=== PATIENT | male | born 1960 | race American Indian/Alaskan Native ===

== ENCOUNTER 2021-01-09 18:17 | Observation (INO) | payer MEDICAID, SELFPAY ==
[2021-01-09 18:21] VITALS: BP 123/59; PULSE 83; RESP 16; TEMP 36.9; O2SAT 98; BMI 33.9
--- NOTE | 2021-01-09 18:31 | PC.NURSE ---
Pt states that he has drank his usual pint of whiskey and 6 beers today. He was walking from his house to the gas station when he had a syncopal episode. Pt hit his head but no lac or hematoma noted. Pt has a dull headache but no other symptoms. Pt states I know I drink a lot but it wasn't enough to make me pass out. Maybe it was the heat. Pt is A&Ox4, speaking clearly, pleasant, VS stable.
--- NOTE | 2021-01-09 18:39 | ED.SYNCOPE ---
HPI - Syncope General Chief Complaint: Syncope Stated Complaint: Syncope Time Seen by Provider: 01/09/21 18:25 Source: EMS Mode of arrival: EMS Limitations: no limitations History of Present Illness HPI narrative: 60-year-old male daily smoker and heavy drinker with presents with a chief complaint of a syncopal episode just prior to arrival. He states he was in his normal state of health when he walked into a local gas station and then upon walking out he collapsed and fell to the ground. This was witnessed by bystanders and they state he did fall to the ground and may have struck his head, demonstrated no seizure-like activity and rather quickly returned to his baseline. Patient states that he did not feel any dizziness, lightheadedness or weakness coming. He does not feel flushed or nauseated and had no clue anything might have been wrong. He denies any recent nausea or vomiting nor medication changes. He denies any recent use of the bathroom or change in position or other obvious provoking symptoms MD complaint: loss of consciousness Prodromal symptoms: none Witnessed: yes - by bystander Injuries sustained associated with event: none Current symptoms: none Treatments prior to arrival: none Related Data Home Medications Medication Instructions Recorded Confirmed No Known Home Medications 01/09/21 01/09/21 Allergies Allergy/AdvReac Type Severity Reaction Status Date / Time No Known Drug Allergies Allergy Verified 01/09/21 18:25 Review of Systems Constitutional Constitutional: Denies chills, Denies fatigue, Denies fever(s), Denies frequent falls, Denies lethargy and Denies weakness Eyes Eyes: Denies change in vision, Denies eye discharge, Denies irritation and Denies loss of vision ENT Ears, Nose, Mouth, and Throat: Denies change in voice, Denies dizziness, Denies neck pain, Denies sore throat and Denies throat swelling Cardiovascular Cardiovascular: Denies chest pain, Reports syncope, Denies irregular heart rhythm, Denies lightheadedness, Denies palpitations, Denies dyspnea, Denies dyspnea on exertion and Denies orthopnea Respiratory Respiratory: Denies cough, Denies dyspnea, Denies dyspnea on exertion and Denies wheezing Gastrointestinal Gastrointestinal: Denies abdominal pain, Denies change in bowel habits, Denies diarrhea, Denies nausea and Denies vomiting Musculoskeletal Musculoskeletal: Denies neck pain and Denies numbness Integumentary/Breasts Skin/Breast: Denies pruritus, Denies erythema, Denies rash and Denies wounds Neurologic Neurologic: Denies behavioral changes, Denies confusion, Denies dizziness, Reports syncope, Denies frequent falls, Denies loss of vision, Denies numbness and Denies weakness Psychiatric Psychiatric: Denies anxiety, Denies behavioral changes, Denies confusion, Denies depression, Denies homicidal ideation and Denies suicidal ideation Endocrine Endocrine: Denies fatigue, Denies flushing and Denies palpitations Hematologic/Lymphatic Hematologic/Lymphatic: Denies easy bruising Allergic/Immunologic Allergic/Immunologic: Denies urticaria, Denies throat swelling and Denies wheezing Patient History Social History household members: other Smoking Status: Current every day smoker alcohol intake: current Smoking Status: Current every day smoker tobacco type: cigarettes alcohol intake frequency: 3 or more drinks per day Alcohol type: beer and hard liquor Substance Use Type: does not use Exam Narrative Exam Narrative: GENERAL: [60] year old patient appears stated age. Well-nourished, well-developed patient, in mild distress. HEAD: Atraumatic. Normocephalic. EYES: Pupils equal round and reactive. Extraocular motions intact. No scleral icterus. No injection or drainage. ENT: Nose without bleeding, purulent drainage. Throat without erythema, tonsillar hypertrophy or exudate. Airway patent. NECK: Trachea midline. Non tender CARDIOVASCULAR: Regular rate and rhythm without murmurs, gallops, or rubs. RESPIRATORY: Clear to auscultation. Breath sounds equal bilaterally. No wheezes, rales, or rhonchi. GASTROINTESTINAL: Abdomen soft, non-tender, nondistended. EXTREMITIES: No edema or joint tenderness. BACK: Nontender without deformity or crepitance. No flank tenderness. NEURO: AOx3. SKIN: No rash or erythema of visible areas NIH Stroke Scale 1a. LOC: Patient is alert and keenly responsive (0) 1b. LOC Questions: Patient answers both LOC questions accurately (0) 1c. LOC Commands: Patient performs both tasks correctly (0) 2. Best Gaze: Normal (0) 3. Visual: No visual loss (0) 4. Facial palsy: Normal symmetrical movements (0) 5. Motor arm: No drift (0) 6. Motor leg: No drift (0) 7. Limb ataxia: Absent (0) 8. Sensory: Normal (0) 9. Best language: No aphasia; normal (0) 10. Dysarthria: Normal (0) 11. Extinction and inattention: No abnormality (0) NIHSS: 0 Initial Vital Signs Initial Vital Signs: Vital Signs Temperature 98.5 F 01/09/21 18:21 Pulse Rate 83 01/09/21 18:21 Respiratory Rate 16 01/09/21 18:21 Blood Pressure 123/59 L 01/09/21 18:21 Pulse Oximetry 98 01/09/21 18:21 Course Course Course Narrative: 60-year-old male smoker and heavy drinker presents with an unprovoked syncopal episode. He denies any prodromal symptoms. Given lack of clear an obvious cause of syncope patient will require observation, telemetry to evaluate for possible arrhythmia versus other. 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) Stat Acetaminophen (Acetaminophen 325 Mg Tablet) 650 mg PO Q6HR PRN PRN Reason: Fever/Mild Pain (1-3) Enoxaparin Sodium (Enoxaparin 40 Mg/0.4 Ml Syringe) 40 mg SUBCUT DAILY ON LICENSE OF [facility] Folic Acid (Folic Acid 1 Mg Tablet) 1 mg PO DAILY ON LICENSE OF [facility] Last Admin: 01/09/21 22:28 Dose: 1 mg Documented by: SONDRA Sodium Chloride (Normal Saline 0.9%) 1,000 mls @ 150 mls/hr IV CONT ON LICENSE OF [facility] Last Infusion: 01/09/21 20:02 Dose: 0 mls/hr Documented by: Admin: 01/09/21 18:58 Dose: 999 mls/hr Documented by: NORI Lorazepam (Lorazepam 1 Mg Tablet) 1 mg PO Q4HR ON LICENSE OF [facility] Multivitamins (Multivitamin 1 Tablet) 1 tab PO DAILY ON LICENSE OF [facility] Last Admin: 01/09/21 22:28 Dose: 1 tab Documented by: SONDRA Naloxone HCl (Naloxone 0.4 Mg/Ml Vial) 0.2 mg IV Q2MIN PRN PRN Reason: Opiate Reversal Ondansetron HCl (Ondansetron 4 Mg/2 Ml Inj) 4 mg IV Q8HR PRN PRN Reason: Nausea And Vomiting Thiamine HCl (Thiamine 100 Mg Tablet) 100 mg PO DAILY SHARYN Stop: 01/12/21 09:01 Last Admin: 01/09/21 22:28 Dose: 100 mg Documented by: SONDRA Vital Signs Vital signs: Vital Signs - 8 hr 01/09/21 18:21 01/09/21 20:30 01/09/21 20:35 Temperature 98.5 F Pulse Rate 83 82 76 Pulse Rate [Orthostatic Lying] Pulse Rate [Orthostatic Sitting] Pulse Rate [Orthostatic Standing] Respiratory Rate 16 23 29 H Blood Pressure 123/59 L 157/67 H 147/70 H Blood Pressure [Orthostatic Lying] Blood Pressure [Orthostatic Sitting] Blood Pressure [Orthostatic Standing] Pulse Oximetry 98 92 94 01/09/21 20:38 Temperature Pulse Rate Pulse Rate [Orthostatic Lying] 78 Pulse Rate [Orthostatic Sitting] 76 Pulse Rate [Orthostatic Standing] 77 Respiratory Rate Blood Pressure Blood Pressure [Orthostatic Lying] 157/67 H Blood Pressure [Orthostatic Sitting] 141/52 H Blood Pressure [Orthostatic Standing] 147/70 H Pulse Oximetry MDM - Syncope Lab Data Result diagrams: 01/09/21 18:25 01/09/21 18:25 Labs: Lab Results 01/09/21 01/09/21 01/09/21 Range/Units 18:25 18:25 18:25 WBC 9.8 (4.5-11.0) X10^3/uL RBC 4.45 L (4.5-5.9) X10^6/uL Hgb 13.4 L (13.5-17.5) g/dL Hct 39.3 L (41-53) % MCV 88.3 (80-100) fL MCH 30.1 (26-34) PG MCHC 34.1 (30-36) % RDW 14.5 (11.6-14.8) % Plt Count 221 (150-400) X10^3/uL Neut % (Auto) 60.8 (50-75) % Lymph % (Auto) 23.9 L (25-40) % [place] % (Auto) 7.2 (3-14) % Eos % (Auto) 6.8 H (2-4) % Baso % (Auto) 1.3 (0-2) % Neut # (Auto) 6000 (8284-8837) /uL Lymph # (Auto) 2300 (8478-0271) /uL [place] # (Auto) 700 (0-900) /uL Eos # (Auto) 700 H (0-450) /uL Baso # (Auto) 100 (0-100) /uL PT 13.5 H (10.1-12.7) SECONDS INR 1.2 (0.9-1.3) Sodium 137 (137-145) mmol/L Potassium 4.4 (3.4-5.1) mmol/L Chloride 106 (98-107) mmol/L Carbon Dioxide 20 L (22-32) mmol/L BUN 10 (9-20) mg/dL Creatinine 1.19 (0.66-1.25) mg/dL Estimated GFR > 60.0 (>60) mL/min BUN/Creatinine Ratio 8.4 (6-22) Glucose 103 (80-110) mg/dL Calcium 8.7 (8.4-10.2) mg/dL Total Bilirubin 0.7 (0.2-1.3) mg/dL AST 63 H (17-59) IU/L ALT 22 (<50) IU/L Alkaline Phosphatase 127 H (38-126) U/L Total Creatine Kinase 109 (55-170) U/L CK-MB (CK-2) 0.83 (<2.37) ng/mL CK-MB (CK-2) Rel Index 0.8 L (1.5-5.0) % Troponin I < 0.012 (0.01-0.034) ng/mL Total Protein 8.3 H (6.3-8.2) g/dL Albumin 3.8 (3.5-5.0) g/dL Globulin 4.5 H (1.7-4.1) g/dL Albumin/Globulin Ratio 0.8 L (1.0-2.8) Ethyl Alcohol 133 H ( - 10) mg/dL SARS-CoV-2 (PCR) (Negative) 01/09/21 Range/Units 20:50 WBC (4.5-11.0) X10^3/uL RBC (4.5-5.9) X10^6/uL Hgb (13.5-17.5) g/dL Hct (41-53) % MCV (80-100) fL MCH (26-34) PG MCHC (30-36) % RDW (11.6-14.8) % Plt Count (150-400) X10^3/uL Neut % (Auto) (50-75) % Lymph % (Auto) (25-40) % [place] % (Auto) (3-14) % Eos % (Auto) (2-4) % Baso % (Auto) (0-2) % Neut # (Auto) (3824-5784) /uL Lymph # (Auto) (4141-4323) /uL [place] # (Auto) (0-900) /uL Eos # (Auto) (0-450) /uL Baso # (Auto) (0-100) /uL PT (10.1-12.7) SECONDS INR (0.9-1.3) Sodium (137-145) mmol/L Potassium (3.4-5.1) mmol/L Chloride (98-107) mmol/L Carbon Dioxide (22-32) mmol/L BUN (9-20) mg/dL Creatinine (0.66-1.25) mg/dL Estimated GFR (>60) mL/min BUN/Creatinine Ratio (6-22) Glucose (80-110) mg/dL Calcium (8.4-10.2) mg/dL Total Bilirubin (0.2-1.3) mg/dL AST (17-59) IU/L ALT (<50) IU/L Alkaline Phosphatase (38-126) U/L Total Creatine Kinase (55-170) U/L CK-MB (CK-2) (<2.37) ng/mL CK-MB (CK-2) Rel Index (1.5-5.0) % Troponin I (0.01-0.034) ng/mL Total Protein (6.3-8.2) g/dL Albumin (3.5-5.0) g/dL Globulin (1.7-4.1) g/dL Albumin/Globulin Ratio (1.0-2.8) Ethyl Alcohol ( - 10) mg/dL SARS-CoV-2 (PCR) Negative (Negative) Point of Care Testing Glucose POC [address] scan - head: Radiologist's Impression: [place] [id number] [place] [id number] Scan ReportSigned Patient: Luis Alberto Tomas RMR#: [id number]: [id number]:[id number]/Sex: 60 / MDate of Service: 01/09/21Loc: EDAccession Number: [id number] Procedure: CT head/brain wo con Ordering Provider: Yuri Cortes D.O. PROCEDURE: CT HEAD/BRAIN WO CON INDICATIONS: syncope, alcohol, head injury TECHNIQUE: Noncontrast 4.5 mm thick angled axial sections acquired from the foramen magnum to the vertex, with coronal and sagittal reformats. For radiation dose reduction, the following was used: automated exposure control, adjustment of mA and/or kV according to patient size. COMPARISON: MR, BRAIN WITHOUT CONTRAST, 08/17/2011, 15:35. [facility], CT, HEAD WITHOUT CONTRAST, 08/17/2011, 12:50. FINDINGS: Image quality: Excellent. CSF spaces: Basal cisterns are patent. No extra-axial fluid collections. The ventricles are symmetric in size and shape. Brain: No intracranial bleeds or masses. There is cerebral volume loss for age, with resultant ventricular and sulcal prominence. There are periventricular and deep white matter chronic small vessel ischemic changes. There is intracranial internal carotid artery and vertebral artery atherosclerosis. Skull and face: Calvarium and visualized facial bones appear intact, without suspicious lesions. Sinuses: Visualized sinuses and mastoids are clear. IMPRESSION: No acute intracranial disease process. Dictated by: Qi Velazquez MD, PhD on 01/09/2021 at 19:09 Approved by: Qi Velazquez MD, PhD on 01/09/2021 at 19:11 ECG Data Attestation: I personally reviewed and interpreted this ECG as follows: Interpretation: EKG is normal sinus rhythm rate [83 ] and free of any signs of ischemia or ectopy. No ST segmental elevation or depression. No T wave inversions Discharge Plan Departure Patient Disposition: Admitted as Observation Clinical Impression: Syncope and collapse Admit Date/Time: 01/09/21 21:10 Admit Provider: Mary Joaquin
[2021-01-09 18:55] LABS: Add Manual Diff / Slide Review NO; Alanine Aminotransferase 22 IU/L (<50); Albumin 3.8 g/dL (3.5-5.0); Albumin Globulin Ratio 0.8 (1.0-2.8); Alkaline Phosphatase 127 U/L (38-126); Aspartate Aminotransferase 63 IU/L (17-59); BUN Creatinine Ratio 8.4 (6-22); Basophils Absolute Auto 100 /uL (0-100); Basophils Percent Auto 1.3 % (0-2); Bilirubin Total 0.7 mg/dL (0.2-1.3); Blood Urea Nitrogen 10 mg/dL (9-20); Calcium 8.7 mg/dL (8.4-10.2); Carbon Dioxide 20 mmol/L (22-32); Chloride 106 mmol/L (98-107); Creatine Kinase 109 U/L (55-170); Eosinophils Absolute Auto 700 /uL (0-450); Eosinophils Percent Auto 6.8 % (2-4); Estimated Glomerular Filt Rate > 60.0 mL/min (>60); Ethanol (ETOH) 133 mg/dL; Globulin 4.5 g/dL (1.7-4.1); Glucose 103 mg/dL (80-110); HEMOLYSIS < 15 (0-50); Hematocrit 39.3 % (41-53); Hemoglobin 13.4 g/dL (13.5-17.5); Lymphocytes Absolute Auto 2300 /uL (1100-4500); Lymphocytes Percent Auto 23.9 % (25-40); Mean Corpuscular HGB Conc 34.1 % (30-36); Mean Corpuscular Hemoglobin 30.1 PG (26-34); Mean Corpuscular Volume 88.3 fL (80-100); Monocytes Absolute Auto 700 /uL (0-900); Monocytes Percent Auto 7.2 % (3-14); Neutrophils Absolute Auto 6000 /uL (1500-7000); Neutrophils Percent Auto 60.8 % (50-75); Platelet Count 221 X10^3/uL (150-400); Potassium 4.4 mmol/L (3.4-5.1); Red Blood Cell Count 4.45 X10^6/uL (4.5-5.9); Red Cell Distribution Width 14.5 % (11.6-14.8); Sodium 137 mmol/L (137-145); Total Protein 8.3 g/dL (6.3-8.2); White Blood Cell Count 9.8 X10^3/uL (4.5-11.0)
[2021-01-09] MEDS: SODIUM CHLORIDE 0.9% 1,000 ML 999 ML IV (18:58)
[2021-01-09 19:07] LABS: Troponin I < 0.012 ng/mL (0.01-0.034)
[2021-01-09 19:10] LABS: CKMB % Relative Index 0.8 % (1.5-5.0); Creatine Kinase MB 0.83 ng/mL (<2.37)
[2021-01-09 20:30] VITALS: BP 123/59; BP 157/67; PULSE 82; PULSE 83; RESP 13; RESP 23; O2SAT 92; O2SAT 93
[2021-01-09 20:35] VITALS: BP 147/70; PULSE 76; RESP 29; O2SAT 94
[2021-01-09 20:38] VITALS: BP 141/52; BP 147/70; BP 157/67; PULSE 76; PULSE 77; PULSE 78
[2021-01-09 21:30] VITALS: BP 141/52; PULSE 89; RESP 29; O2SAT 100
[2021-01-09 21:32] LABS: INR 1.2 (0.9-1.3); Prothrombin Time 13.5 SECONDS (10.1-12.7)
[2021-01-09 21:37] LABS: COVID19 - ADMIT (NP swab/PCR) Negative (Negative)
[2021-01-09 21:45] VITALS: BP 152/64; PULSE 74; RESP 20; TEMP 36.9; O2SAT 96
[2021-01-09 22:01] VITALS: BMI 33.9
--- NOTE | 2021-01-09 22:16 | PM.HP.1 ---
History of Present Illness History of Present Illness Date Patient Seen: 01/09/21 Time Patient Seen: 22:16 Chief complaint: Syncope Narrative: Luis Alberto Tomas is a 60-year-old male who apparently was found down on the ground at the local [employer] station. He does not recall what happened. He states he just woke up to find the paramedics attempting to get me to wake up.He states he is healthy and normally needs to take blood pressure medications but does not have insurance or a primary care physician to handle his medical issues. He denies a history of diabetes or high cholesterol. He goes to the [facility] for his episodic needs. He also states that he drinks a pt and a half of whiskey a day and a beer, he states he does not intend to quit. He states in the past when he has had to quit it is been when he has been in [facility] and that they ?give me something for withdrawals?. He states that he has difficulty seeing because he has lost his glasses, he denies any headache, denies shortness of breath, chest pain, nausea or vomiting, dysuria, diarrhea or constipation, numbing and tingling of his upper lower extremities. He denies a personal or family history of seizure disorder however he does state that both of his parents in their late 30s or early 40s of alcoholism. In the emergency department he presented with an elevated alcohol level of 133. CBC is not impressive, as a bicarb of 20, AST is 63, alk-phos 127, and COVID-19 PCR is negative. Patient History Medical History Chronic alcohol dependence, continuous Essential hypertension Surgical History History of arthroplasty of finger of left hand Family & Social History Family History Mother Alcoholism in family Father Alcoholism in family Social History: household members other Prior Living Arrangements House Safety & Behavioral: Feels Safe in Current Yes Environment Been Physically Hurt or No Threatened By a Person Suicidal Ideation Description None Suicide Plan Description No Plan Tobacco & Substance use: Tobacco type 1/2 pack cigarettes Smoking Status Current every day smoker alcohol intake current alcohol intake frequency pint of whiskey and 1 beer daily Substance Use Type marijuana Meds Home Medications and Allergies Home Medications Medication Instructions Recorded Confirmed Type No Known Home Medications 01/09/21 01/09/21 History Allergies Allergy/AdvReac Type Severity Reaction Status Date / Time No Known Drug Allergies Allergy Verified 01/09/21 18:25 Review of Systems Review of Systems ROS: Yes All systems reviewed with the patient and are negative except as otherwise documented Exam Vital Signs (past 8 hours): - 01/09/21 18:21 01/09/21 20:30 01/09/21 20:35 Temperature 98.5 F Pulse Rate 83 82 76 Pulse Rate [Orthostatic Lying] Pulse Rate [Orthostatic Sitting] Pulse Rate [Orthostatic Standing] Respiratory Rate 16 23 29 H Blood Pressure 123/59 L 157/67 H 147/70 H Blood Pressure [Orthostatic Lying] Blood Pressure [Orthostatic Sitting] Blood Pressure [Orthostatic Standing] Pulse Oximetry 98 92 94 01/09/21 20:38 01/09/21 21:30 Temperature Pulse Rate 89 Pulse Rate [Orthostatic Lying] 78 Pulse Rate [Orthostatic Sitting] 76 Pulse Rate [Orthostatic Standing] 77 Respiratory Rate 29 H Blood Pressure 141/52 H Blood Pressure [Orthostatic Lying] 157/67 H Blood Pressure [Orthostatic Sitting] 141/52 H Blood Pressure [Orthostatic Standing] 147/70 H Pulse Oximetry 100 Oxygen Delivery Method Room Air Narrative Exam Narrative: Gen: Alert, oriented, obese 60 y.o. male, NAD HEENT: normocephalic, atraumatic, conjunctiva clear, sclera non-icteric, oral mucosa pink and moist, poor dentition and missing teeth Neck: supple, full ROM, no JVD, trachea is midline Resp: Lungs CTA, non-labored breathing CV: RRR, no murmur or rubs Abd: obese, soft, non-tender, normoactive BTs Skin: multiple and generalized what appear to be scars on upper and lower extremities in various ages, dry and intact Neuro: Alert and oriented X 4 w/no focal deficits. Speech clear and coherent. Extremities: moves all 4 extremities, is ambulatory, negative Eldon?s sign Psyche: normal mood and affect. Objective Labs Result Diagrams: 01/09/21 18:25 01/09/21 18:25 Labs: Laboratory Results - last 24 hr 01/09/21 01/09/21 01/09/21 18:25 18:25 18:25 WBC 9.8 RBC 4.45 L Hgb 13.4 L Hct 39.3 L MCV 88.3 MCH 30.1 MCHC 34.1 RDW 14.5 Plt Count 221 Neut % (Auto) 60.8 Lymph % (Auto) 23.9 L [place] % (Auto) 7.2 Eos % (Auto) 6.8 H Baso % (Auto) 1.3 Neut # (Auto) 6000 Lymph # (Auto) 2300 [place] # (Auto) 700 Eos # (Auto) 700 H Baso # (Auto) 100 PT 13.5 H INR 1.2 Sodium 137 Potassium 4.4 Chloride 106 Carbon Dioxide 20 L BUN 10 Creatinine 1.19 Estimated GFR > 60.0 BUN/Creatinine Ratio 8.4 Glucose 103 Calcium 8.7 Total Bilirubin 0.7 AST 63 H ALT 22 Alkaline Phosphatase 127 H Total Creatine Kinase 109 CK-MB (CK-2) 0.83 CK-MB (CK-2) Rel Index 0.8 L Troponin I < 0.012 Total Protein 8.3 H Albumin 3.8 Globulin 4.5 H Albumin/Globulin Ratio 0.8 L Ethyl Alcohol 133 H SARS-CoV-2 (PCR) 01/09/21 20:50 WBC RBC Hgb Hct MCV MCH MCHC RDW Plt Count Neut % (Auto) Lymph % (Auto) [place] % (Auto) Eos % (Auto) Baso % (Auto) Neut # (Auto) Lymph # (Auto) [place] # (Auto) Eos # (Auto) Baso # (Auto) PT INR Sodium Potassium Chloride Carbon Dioxide BUN Creatinine Estimated GFR BUN/Creatinine Ratio Glucose Calcium Total Bilirubin AST ALT Alkaline Phosphatase Total Creatine Kinase CK-MB (CK-2) CK-MB (CK-2) Rel Index Troponin I Total Protein Albumin Globulin Albumin/Globulin Ratio Ethyl Alcohol SARS-CoV-2 (PCR) Negative Assessment & Plan Assessment & Plan narrative: Luis Alberto Tomas will be observed overnight and monitored for a cardiac arrythmia. Due to his alcohol use, he will also be on CIWA protocol. Unprovoked sycopal episode -Patient has no memory of the event -Seizure precautions Continous alcohol dependence with a potential to proceed to withdrawals -Patient was very forthcoming about previous needs to stop drinking, though he was incarcarated and medicated -CIWA protocol -Ativan 1 mg po q 4 hours prn Probable essential hypertension, present on admission -Not currently on any medications. -He will be started on lisinopril 10 mg po now and daily -SW consult to set him up with [facility] or [facility] under their sliding scale care program. VTE prophylaxis: Wells risk score: 0 Enoxaparin 40 mg subQ daily Consults: none Patient is observation status as his stay is not likely to exceed 2 midnights. FEN: saline lock, general diet, BMP and magnesium in the am. Dispo: probable discharge to home Code Status: DNR/DNI as discussed with patient. States has a living will, brother is aware, nephew is medical DPOA. COVID-19 COVID-19 status: Negative Result date/Date tested (Pos, Neg/Pending): 01/09/21 Scores Wells' Criteria for PE Clinical signs and symptoms of DVT: No PE is #1 Dx or equally likely: No Heart rate > 100: No Immobilization at least 3 days or surg in previous 4 weeks: No History of PE or DVT: No Hemoptysis: No Malignancy w/Treatment within 6 months or palliative: No Wells' PE Score total: 0 Quality VTE Deep Vein Thrombosis/Pulmonary Embolism Present on Admission: No MIPS - Admit I confirm the patient?s Advance Care Plan is present, Code status is documented, Surrogate decision maker is in patient?s record [If Yes, STOP here]: Yes
[2021-01-09] MEDS: MULTIVITAMIN 1 TABLET 1 TAB PO (22:28)
[2021-01-09] MEDS: FOLIC ACID 1 MG TABLET PO (22:28)
[2021-01-09] MEDS: THIAMINE 100 MG TABLET PO (22:28)
[2021-01-10] VITALS (8 sets, daily range): BP systolic 134–155; BP diastolic 65–82; PULSE 65–91; RESP 16–19; TEMP 36.5–37.3; O2SAT 93–98
[2021-01-10] MEDS: lisinopriL 10 MG TABLET PO ×2 (00:09→09:21)
--- NOTE | 2021-01-10 00:09 | DI.RAD.S_ITS ---
PROCEDURE: XR CHEST 2V INDICATIONS: crackles in right middle lobe TECHNIQUE: 2 views of the chest were acquired. COMPARISON: [facility], CR, CHEST 1VW (PORTABLE), 08/10/2014, 15:16. [facility], CR, CHEST 2 VIEW, 08/17/2011, 12:52. FINDINGS: Surgical changes and devices: Overlying EKG wires.. Lungs and pleura: Interstitial prominence of the lower lobes bilaterally progressed since comparisons. No focal consolidation. No pleural effusions or pneumothorax. Mediastinum: Mediastinal contours are normal. Heart size is normal. Bones and chest wall: No suspicious bony abnormalities. Remote left-sided rib fractures. Soft tissues appear unremarkable. IMPRESSION: Chronic progressed interstitial prominence at the lung bases. No focal consolidation. Dictated by: Taran Ivy D.O. on 01/10/2021 at 6:09 Approved by: Taran Ivy D.O. on 01/10/2021 at 6:12
[2021-01-10] MEDS: ENOXAPARIN 40 MG/0.4 ML SYRINGE SUBCUT (00:10)
[2021-01-10 05:36] LABS: Add Manual Diff / Slide Review NO; Basophils Absolute Auto 100 /uL (0-100); Basophils Percent Auto 1.3 % (0-2); Eosinophils Absolute Auto 500 /uL (0-450); Eosinophils Percent Auto 8.1 % (2-4); Hematocrit 37.5 % (41-53); Hemoglobin 12.4 g/dL (13.5-17.5); Lymphocytes Absolute Auto 1800 /uL (1100-4500); Lymphocytes Percent Auto 27.9 % (25-40); Mean Corpuscular Hemoglobin 29.4 PG (26-34); Mean Corpuscular Volume 89.1 fL (80-100); Monocytes Absolute Auto 500 /uL (0-900); Monocytes Percent Auto 8.3 % (3-14); Neutrophils Absolute Auto 3500 /uL (1500-7000); Neutrophils Percent Auto 54.4 % (50-75); Platelet Count 166 X10^3/uL (150-400); Red Blood Cell Count 4.21 X10^6/uL (4.5-5.9); Red Cell Distribution Width 14.8 % (11.6-14.8); White Blood Cell Count 6.4 X10^3/uL (4.5-11.0)
[2021-01-10 05:45] LABS: Alanine Aminotransferase 19 IU/L (<50); Albumin 3.2 g/dL (3.5-5.0); Albumin Globulin Ratio 0.8 (1.0-2.8); Alkaline Phosphatase 114 U/L (38-126); Aspartate Aminotransferase 58 IU/L (17-59); BUN Creatinine Ratio 11.1 (6-22); Bilirubin Total 0.8 mg/dL (0.2-1.3); Bilirubin Unconjugated 0.7 mg/dL (0.0-1.1); Blood Urea Nitrogen 12 mg/dL (9-20); Calcium 8.4 mg/dL (8.4-10.2); Carbon Dioxide 22 mmol/L (22-32); Chloride 110 mmol/L (98-107); Estimated Glomerular Filt Rate > 60.0 mL/min (>60); Globulin 3.9 g/dL (1.7-4.1); Glucose 97 mg/dL (80-110); HEMOLYSIS < 15 (0-50); Potassium 4.1 mmol/L (3.4-5.1); Sodium 138 mmol/L (137-145); Total Protein 7.1 g/dL (6.3-8.2)
--- NOTE | 2021-01-10 07:50 | DI.ECHO.S_ITS ---
[facility]+ [facility] +---------+ : : [address] : : : : [id number] : : : : Phone: [phone]+ Echocardiogram Report + + :Name: FLETCHER ANAYA Study Date: 01/10/2021 Height: 66 in : :[facility] ReadingLocation: Weight: 210 lb : : Gender: Male BSA: 2.0 m2 : :: 1960 Age: 60 yrs BP: 152/64 mmHg: :Reason For Study: Syncope : :Ordering Physician: Eugenia : :Hospitalist Performed By: Farideh Page : :Referring: CHARLIE RUVALCABA : + + Interpretation Summary Left ventricular systolic function appears normal with an estimated ejection fraction of 60 to 65% without any obvious focal wall motion abnormality. There is likely borderline LVH with assessment of diastolic function suggesting probable elevated filling pressures. The right ventricle is not well seen but grossly appears normal. Right ventricular systolic pressure is estimated to be at least 35 mmHg plus the clinically estimated CVP which could not be estimated on this exam. There is severe left atrial enlargement. There is no significant valvular abnormality. The ascending aorta is mildly enlarged. Procedure: A two-dimensional transthoracic echocardiogram with color flow and Doppler was performed. The study quality was technically difficult. There is no prior echocardiogram noted for this patient. A contrast injection of Definity was performed to improve assessment of LV function. The subcostal views were not obtained due to surgical scaring. The patient was in normal sinus rhythm during the exam. Left Ventricle: The left ventricle is normal in size. There is borderline concentric left ventricular hypertrophy. Left ventricular systolic function appears normal without focal wall motion abnormalities. The ejection fraction is estimated to be 60-65%. Diastolic parameters suggest a pseudonormalization pattern, consistent with probable elevated filling pressures. Right Ventricle: The right ventricle is not well visualized. The right ventricle grossly appears normal in size with probable normal systolic function. Atria: The left atrium is severely dilated. Right atrial size is normal. There is no Doppler evidence for an interatrial shunt. Mitral Valve: The mitral valve is grossly normal. There is trace mitral regurgitation. Aortic Valve: The aortic valve is not well visualized. The aortic valve is grossly normal. The aortic valve is mildly calcified. The aortic valve opens well. There is no aortic valve stenosis. No aortic regurgitation is present. Tricuspid Valve: The tricuspid valve is normal in structure and function. There is trace tricuspid regurgitation. Right ventricular systolic pressure is estimated to be 35 mmHg plus the clinically estimated CVP which cannot be estimated on this exam. Pulmonic Valve: The pulmonic valve is not well visualized. Great Vessels: The aortic root is normal size. The ascending aorta is mildly enlarged. The pulmonary is not well visualized. The inferior vena cava was not visualized. Pericardium/ Pleura There is no pericardial effusion. There is an anterior echo-free space consistent with a fat pad. There is no pleural effusion. MMode/2D Measurements & Calculations LVIDd: 5.7 cm LVOT diam: 2.3 cm LVIDs: 3.9 cm Ao root diam: 3.3 cm FS: 31.9 % asc Aorta Diam: 3.5 cm IVSd: 0.86 cm LVPWd: 0.58 cm LV ayala. diameter/BSA (cm/m^2): 2.8 LV sys. diameter/BSA (cm/m^2): 1.9 LA A2 area: 32.7 cm2 RA long axis: 5.7 cm LA A4 area: 35.0 cm2 RA area: 19.6 cm2 LA length (vol): 7.2 cm RA vol: 56.8 ml LA vol: 134.9 ml RA : 27.8 ml/m2 LA vol index: 66.1 ml/m2 RVD1 (basal): 4.8 cm TAPSE: 2.2 cm Doppler Measurements & Calculations Ao V2 max: 192.2 cm/sec LVOT Max Arjun: 115.1 cm/sec Ao V2 mean: 139.9 cm/sec LV V1 max P.3 mmHg Ao max P.8 mmHg LV V1 VTI: 25.7 cm Ao mean P.4 mmHg BIBI(I,D): 2.7 cm2 Ao V2 VTI: 38.3 cm BIBI(V,D): 2.4 cm2 sev ratio: 0.67 BIBI indexed to BSA (cm^2/m^2): 1.3 MV E max arjun: 114.1 cm/sec TR max arjun: 295.4 cm/sec MV A max arjun: 108.2 cm/sec TR max P.9 mmHg MV E/A: 1.1 PA V2 max: 93.8 cm/sec Med Peak E' Arjun: 7.5 cm/sec PA V2 mean: 67.4 cm/sec E/E' med: 15.2 PA mean P.0 mmHg Lat Peak E' Arjun: 7.1 cm/sec E/E' lat: 16.0 E/e' average: 15.6 MV dec time: 0.19 sec [facility] 104.2 ml Reading Physician:03:35 PM
[2021-01-10 08:13] LABS: Cholesterol 137 mg/dL (140-199); HDL Cholesterol 30 mg/dL (40-60); LDL Cholesterol Calculated 85 mg/dL (<100); Triglycerides 108 mg/dL (35-150)
[2021-01-10 08:15] LABS: Hemoglobin A1C% w Est Avg Glu 5.1 % (4.0-6.0)
[2021-01-10] MEDS: THIAMINE 100 MG TABLET PO (09:21)
[2021-01-10] MEDS: MULTIVITAMIN 1 TABLET 1 TAB PO (09:21)
[2021-01-10] MEDS: FOLIC ACID 1 MG TABLET PO (09:21)
[2021-01-10] MEDS: SODIUM CHLORIDE 0.9% FLUSH 10 ML IV ×2 (09:22→21:12)
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
--- NOTE | 2021-01-10 11:29 | DI.MRI.S_ITS ---
PROCEDURE: MR STROKE Pre- and post-contrast brain MRI, non-contrast brain MR angiogram, pre- and postcontrast neck MR angiogram INDICATIONS: head injury /LOC TECHNIQUE: Brain: Noncontrast axial T1 spin echo, axial T2 fast spin echo, sagittal and axial FLAIR, coronal T2 fast spin echo, axial gradient echo, axial diffusion and ADC through the brain. After the administration of contrast, axial 3D VIBE of the cranial vasculature and brain. Brain MRA: Non-contrast 3-D time of flight MR angiogram, with multiple aldqpac-cqziolnih-gdubxmygvi (MIP) reformats performed. Neck MRA: Axial and sagittal TruFISP through the neck. Coronal dynamic MR angiogram during administration of contrast in the arterial and venous phases, with 3-dimenstional udhhyyw-agzxujbbq-sbwnzhdrwp (MIP) reformats constructed from subtraction images. COMPARISON: [facility], CT, CT BRAIN WO CON, 09/07/2016, 21:52. [facility], MR, ANGIOGRAM HEAD WITHOUT CONTRAS, 08/17/2011, 15:47. [facility], CT, HEAD WITHOUT CONTRAST, 08/17/2011, 12:50. [facility], CT, CT HEAD/BRAIN WO CON, 01/09/2021, 18:43. FINDINGS: Image quality: Excellent. BRAIN: CSF spaces: Ventricles are normal in size and shape. Basal cisterns are patent. No extra-axial fluid collections. Brain: No intracranial bleeds or mass effects. Roth-white matter interface is normal. Diffusion weighted images show no acute ischemic insults. Brainstem appears normal. Normal intravascular flow voids are present. No abnormal intracranial enhancement. Skull and face: Calvarial marrow signal is normal. Orbits appear normal. Sinuses: Sinuses and mastoids are clear. BRAIN MR ANGIOGRAM: Anterior circulation: Intracranial internal carotid arteries are normal in size and enhancement. The flow within the paired anterior cerebral arteries is normal and symmetric. The flow within the middle cerebral arteries is asymmetric, with no flow seen extending in the M2 segment and contiguous sylvian fissure arterial vasculature, chronicity uncertain. The anterior communicating artery is seen. No stenoses, occlusions, or definite aneurysms. 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 Posterior circulation: The visualized portions of the vertebral arteries demonstrate normal caliber, and join to form a normal appearing basilar artery. The flow within the posterior cerebral arteries is normal and symmetric. No stenoses, occlusions, or aneurysms. NECK MR ANGIOGRAM: Carotids: Great vessels demonstrate a conventional anatomy as they arise from the aortic arch. The origins of the common carotid arteries appear patent. The calibers and courses of both common carotid arteries are normal. The bifurcation regions appear normal bilaterally. The internal carotid arteries demonstrate normal course and caliber. Posterior circulation: The origins of the vertebral arteries appear patent. More superior portions of both vertebral arteries demonstrate normal course and caliber, and join to form a normal appearing basilar artery. Miscellaneous: Subclavian arteries appear patent. Pre-contrast images through the neck show no soft tissue abnormalities. IMPRESSION: BRAIN MRI: No ischemic injury found, no prior area of infarction is identified, and on FLAIR imaging there is minimal microvascular atherosclerotic change in the deep white matter of each hemisphere. BRAIN MR ANGIOGRAM: Despite absence of ischemic brain injury there has been an interval significant change in MR angiography from 2010 to the current study. Previously the M2 segments and sylvian arterial vasculature extending contiguously was patent bilaterally, but currently the right middle cerebral artery is not seen to contain flow. Chronicity is uncertain. The prior 2010 study had raised a question of presence of right internal carotid artery cavernous medial directed 3 mm aneurysm. A similar morphology persists but a definite diagnosis of aneurysm at that site is not established by this study. The area would be most accurately assessed by catheter angiography which may occur as a result of the current findings discussed above. NECK MR ANGIOGRAM: Normal cervical MR angiogram. Note: These findings were immediately called to and discussed with the hospitalist caring for the patient. Neuroradiology interventional consult is anticipated. Dictated by: Jhon Escamilla M.D. on 01/11/2021 at 11:20 Approved by: Jhon Escamilla M.D. on 01/11/2021 at 12:24
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
[2021-01-10 15:22] LABS: Hematocrit 37.1 % (41-53); Hemoglobin 12.7 g/dL (13.5-17.5)
[2021-01-10 15:29] LABS: Magnesium 2.1 mg/dL (1.6-2.3)
[2021-01-10] MEDS: ACETAMINOPHEN 325 MG TABLET 650 MG PO (21:12)
[2021-01-11 04:20] VITALS: BP 146/77; PULSE 73; RESP 16; TEMP 36.6; O2SAT 100
[2021-01-11 05:26] LABS: Creatine Kinase 168 U/L (55-170); Ethanol (ETOH) < 10 mg/dL
[2021-01-11 05:38] LABS: NT-proBNP (BNP-Adult 18+) 149 pg/mL (<125); Troponin I < 0.012 ng/mL (0.01-0.034)
[2021-01-11 05:41] LABS: CKMB % Relative Index 0.6 % (1.5-5.0); Creatine Kinase MB 1.01 ng/mL (<2.37)
[2021-01-11 07:33] VITALS: BP 143/76; PULSE 66; RESP 16; TEMP 36.4; O2SAT 96
[2021-01-11] MEDS: MULTIVITAMIN 1 TABLET 1 TAB PO (08:40)
[2021-01-11] MEDS: THIAMINE 100 MG TABLET PO (08:40)
[2021-01-11] MEDS: lisinopriL 10 MG TABLET PO (08:40)
[2021-01-11] MEDS: FOLIC ACID 1 MG TABLET PO (08:40)
[2021-01-11] MEDS: SODIUM CHLORIDE 0.9% FLUSH 10 ML IV (08:41)
[2021-01-11] MEDS: ENOXAPARIN 40 MG/0.4 ML SYRINGE SUBCUT (08:41)
--- NOTE | 2021-01-11 11:06 | CM.DANOTE ---
DCP/continued: Reviewed chart. Met with patient this AM explained CM/SW role. Patient alert and oriented, resting in bed at time of visit. Patient reports that he just came back from MRI'. Patient hopeful that he can d/c home today. Patient admits to drinking alcohol daily. Patient does not have any plans to quit. However, patient does report that he has slowed down Patient denies need for any community resources for alcoholism. Patient does request information pertaining to PCP's in area. DEALER SUPPORT TECHNICIAN provided patient with name numbers of G[facility] and Nilesh Davalos. Patient reports that he has spoken with Barby Britton social economist on reservation this AM. Patient reports that Barby has agreed to assist patient with medical follow up and medications. Patient provided with information re: medical insurance. Patient reports that he lost his card and waiting on replacement. P: Anticipate home today if MRI negative. Resources provided. PRAVEEN Hall
[2021-01-11 11:29] VITALS: BP 140/70; PULSE 71; RESP 16; TEMP 36.8; O2SAT 97
[2021-01-11] MEDS: ATORVASTATIN 20 MG TABLET 80 MG PO (12:41)
[2021-01-11] MEDS: ASPIRIN 325 MG TABLET PO (12:41)
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
--- NOTE | 2021-01-11 14:33 | PC.NURSE ---
Went over dc instructions and medications with patient,questions answered. Rx for new meds given. Patient taken via [place] to vehicle driven by friend. Patient had all belongings.
== END 2021-01-11 14:35 | disposition home or self-care (01) ==
LOC: ED 18:32 → AC 21:11
PROVIDERS: Nurse Practitioner Family; Admitting Provider Nurse Practitioner Family; Emergency Provider Emergency Medicine; Referring Provider Emergency Medicine; Visit Provider Nurse Practitioner Family
DX: R55 Syncope and collapse (principal); W18.39XA Other fall on same level, initial encounter; Y92.524 Gas station as the place of occurrence of the external cause; F17.210 Nicotine dependence, cigarettes, uncomplicated; I10 Essential (primary) hypertension; F10.20 Alcohol dependence, uncomplicated; Y90.6 Blood alcohol level of 120-199 mg/100 ml; E66.9 Obesity, unspecified; Z68.33 Body mass index [BMI] 33.0-33.9, adult; D64.9 Anemia, unspecified; Z20.822 Contact with and (suspected) exposure to COVID-19
CPT/HCPCS: 36415; 70450; 70548; 70553; 71046; 80048; 80053; 80061; 80076; 80320; 82550; 82553; 82962; 83036; 83735; 83880; 84484; 85014; 85018; 85025; 85610; 87635; 93005; 93010; 93306; 96360; 96372; 99284; 99406; C9803; G0378; J1650